=== PATIENT | female | born 2000 | race American Indian/Alaskan Native ===

== ENCOUNTER 2018-10-31 11:41 | Emergency (ER) | payer MEDICAID ==
[2018-10-31 12:29] VITALS: BMI 21.2
[2018-10-31 13:10] LABS: BASO % 0.2 % (0.0-2.0); EOS % 0.1 % (0.0-4.0); HEMOGLOBIN 10.7 g/dL (11.0-16.0); LYMPH % 16.2 % (20.0-40.0); MEAN CELL VOLUME 88.6 fL (81.0-99.0); MEAN CORPUSCULAR HEMOGLOBIN 29.8 pg (27.0-31.0); MEAN CORPUSCULAR HGB CONC 33.6 g/dL (33.0-37.0); MEAN PLATELET VOLUME 8.4 fL (7.2-11.7); MONO # 0.9 K/uL (0.0-0.8); MONO % 7.1 % (0.0-10.0); NEUT # 9.4 K/uL (1.8-7.0); NEUT % 76.4 % (50.0-75.0); RBC 3.58 Mil/uL (3.80-5.20); RED CELL DISTRIBUTION WIDTH 13.8 % (11.5-14.5); WHITE BLOOD COUNT 12.3 K/uL (4.8-10.8)
[2018-10-31 13:53] LABS: SQUAMOUS EPITHIAL 5 /hpf (0-5); URINE AMORPHOUS SEDIMENT OCC /ul (<OCC); URINE BILIRUBIN NEGATIVE (NEGATIVE); URINE BLOOD NEGATIVE (NEGATIVE); URINE CLARITY Hazy (Clear); URINE COLOR Yellow (YELLOW); URINE GLUCOSE (UA) NORMAL (Normal); URINE LEUKOCYTE ESTERASE TRACE Leu/uL (Negative); URINE PROTEIN NEGATIVE (NEGATIVE); URINE UROBILINOGEN NORMAL mg/dL (0.2-1.0)
[2018-10-31 13:58] LABS: ALB/GLOB RATIO 1.3 (1.0-2.1); ALBUMIN 3.9 g/dL (3.5-5.0); ALT/SGPT 16 U/L (9-52); AST/SGOT 29 U/L (14-36); BLOOD UREA NITROGEN 7 mg/dL (7-17); CALCIUM 9.7 mg/dl (8.6-10.4); GFR NON-AFRICAN AMERICAN > 60
--- NOTE | 2018-10-31 14:40 | US ---
Date of service: 10/31/2018 PROCEDURE: Obstetrical ultrasound examination HISTORY: without PNC COMPARISON: None available TECHNIQUE: Transabdominal FINDINGS: Ultrasound examination demonstrates a single live intrauterine gestation in breech presentation. The heart rate is 137 beats per minute. A grossly normal quantity of amniotic fluid is visualized. A normal anterior placenta is identified. There is no evidence of placenta previa. The cervix is mildly shortened, measuring 2.3 cm in length. biometry yields a gestational age of 23 weeks 6 days. The AVINASH by ultrasound is 02/21/2019. The AVINASH by an LMP of 05/24/2018 is 02/28/2019. The EFW is 561.83 g. Please note that the ratio of femur length to BPD is mildly below the normal range and the ratio of head circumference to abdominal circumference is mildly above the normal range. This could indicate asymmetric IUGR. Follow-up with obstetrical ultrasound and maternal medicine consult is advised. Limited review of anatomy demonstrates fluid distending the stomach and urinary bladder. Two normal kidneys are identified without hydronephrosis. A three-vessel umbilical cord is seen. The anterior abdominal wall is intact. There is no gross abnormality of the spine. A 4 chamber view of the heart is not adequately provided. IMPRESSION: Single live intrauterine gestation of approximately 23 weeks 6 days gestational age. AVINASH is 02/21/2019. EFW is 561.83 g. heart rate 137. Anterior placenta. No previa. Mildly shortened cervix. biometry indicates the possibility of mild asymmetric IUGR. Recommend follow-up with obstetrical ultrasound as well as maternal medicine consult.
[2018-10-31 14:56] LABS: HEPATITIS B SURFACE AG Negative (NEGATIVE)
[2018-10-31 15:12] LABS: RAPID PLASMA REAGIN NONREACTIVE (NONREACTIVE)
[2018-10-31 15:13] LABS: HEPATITIS C ANTIBODY NEGATIVE (NEGATIVE)
--- NOTE | 2018-10-31 18:07 | OBHP ---
Datetime: 10/31/2018 13:13 IP Adm Impression: , intrauterine ; No Active Labor; Intact Membranes IP Chief Complaint Other: abdominal pain No Care IP Admit Plan: Observation/Evaluation Admit Comment, IP Provider: 18 year old at 22.6 weeks by LMP 05/24/18 presents to OB ED with lo wer abdominal pain x 1 day. Patient has not had any care. Patient endorses 5/10 constant low er abdominal pain that started just this morning. The pain is worse when she urinates, though she pruitt s not have dysuria or increased frequency. The pain lessens when she lies flat. Patient has not tried any medications to attempt to relieve the pain. Last sexual intercourse was one week ago without dys pareunia. It was unprotected. Patient denies fever, chills, nausea, vomiting, diarrhea, chest pain, s hortness of breath, palpitations. Pt admits to + FM and denies LOF, VB or VD. 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 Denies history of STIs and fibroids. No pap due to < 21 y/o. PMHx: denies PSHx: denies FHx: mother with HTN, father without known medical issues SocHx: Denies tobacco, EtOH, and illicit drugs now and in the past, other than a few months of min i cigars prior to . 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 Meds: denies, not even PNV Allergies: NKDA vitals and physical exam: see above A/P: 18 year old at 22.6 weeks by LMP 05/24/18 with lower abdominal pain x 1 day. -UA, Ucx -CBC, CMP -order labs due to lack of care -order ultrasound due to lack of care case discussed with Dr. Lazaro Moe PGY1 Pt seen and examined with Dr. Moe and agree with her findings and POC Abdomen - PN: Abnormal Back - PN: Normal Breast - PN: Not Done Lungs - PN: Normal Heart - PN: Normal Thyroid - PN: Not Done Neurologic - PN: Not Done HEENT - PN: Not Done General - PN: Normal FHR - Baseline A Provider: 150 Membranes, Provider: Intact Contraction Comments Provider: None Comments, ACOG Physical Exam: abdomen: suprapubic tenderness gravid uterus with fundal height of 20 cm, approximately at level of umbilicus. right CVA tenderness Gestation - Est Wks by US: 22.6 IP Hx Assessment: The History has been Updated EGA AdmitDate IP: 23.0 Vital Signs Provider: Reviewed; Within Normal Limits IP Chief Complaint: Other DTRs - PN: Not Done
--- NOTE | 2018-10-31 18:31 | OBDCSUM ---
Datetime: 10/31/2018 15:42 Discharged to, Provider: Home Follow up at, Provider: [facility] Disch Instr Activity: Normal activity Disch Instr Diet: Regular Discharge Time: 10/31/2018 15:42 Disch Referrals: None Datetime: 10/31/2018 14:49 Discharged to, Provider: Home Follow up at, Provider: [facility] Disch Instr Activity: Normal activity Disch Instr Diet: Regular Discharge Instructions, Provider: Routine instructions given Discharge Time: 10/31/2018 15:56 Follow up in weeks, Provider: 11/08 appointment Contraception discussed, Prov: No Disch Activity Restrictions: No exercising; No lifting; No sexual activity; Nothing in vagina - Inte rcourse, tampons, douche Discharge Comment, Provider: A/P: 18 year old at 22.6 weeks by LMP 05/24/18 with lower abdomina l pain x 1 day. -UA with + indicative for UTI -CBC, CMP resulted essentially WNL -Walik-in labs resulted and Negative -US revealed a at 22.6 weeks and c/w LMP. Placenta, cervix and fetus all WNL No uterine activity noted I personnaly [place] [facility] and made an appointment for her to see Dr. Peace on 11/08/18 Copies of her labs and US given to patient to bring to her appointment at the Clinic Rx for Macrobid given and advised to take macrobid 100 mg every 12 hours for 7 days and to not mis s a dose. Patient agrees to follow the medication instructions. First dose of macrobid completed here Counseled to increase po water intake and to start daily PNV GABRIELA. She wants to take Gummies. Discharged home in Stable and Satisfactory condition and with Rx for Macrobid and all information to f/up care at [facility] in [place]. case discussed with Dr. Lazaro Moe PGY1 Pt seen and examined with Dr. Moe and agree with her findings and POC Discharge Diagnosis Prov Other: urinary tract infection No PNC
[2018-10-31 19:54] VITALS: BP 118/66; PULSE 76
== END 2018-10-31 15:54 | disposition home or self-care (01) ==
LOC: C.ER 11:41 → C.EROB 11:41
DX: O26.92 Pregnancy related conditions, unspecified, second trimester (principal); Z3A.22 22 weeks gestation of pregnancy; R10.30 Lower abdominal pain, unspecified